=== PATIENT | female | born 1940 ===

== ENCOUNTER 2018-02-16 17:53 | Emergency (ER) | payer OTHER ==
[2018-02-16 17:53] VITALS: BMI 23.0
[2018-02-16 18:40] VITALS: BP 145/70; PULSE 70; RESP 18; TEMP 98; O2SAT 99
--- NOTE | 2018-02-16 19:49 | ED PDOC ---
HPI: Abdomen Time Seen by Provider: 02/16/18 19:03 Chief Complaint (Nursing): Abdominal Pain Chief Complaint (Provider): Abdominal Pain History Per: Patient History/Exam Limitations: no limitations Onset/Duration Of Symptoms: Days (x2), Persistent Current Symptoms Are (Timing): Still Present Location Of Pain/Discomfort: Epigastric, Other (radiating to back) Associated Symptoms: Nausea, Diarrhea (mild). denies: Fever, Chills, Vomiting, Urinary Symptoms Additional Complaint(s): Amy Patel is a 77 year old female with a past medical history of abdominal issues for one year, who is presenting to the ER with complaints of constant epigastric abdominal pain, radiating to the back and rest of abdomen, onset 2 days ago. Patient reports that the pain has been worsening since onset and she complains of nausea, loss of appetite, and mild diarrhea. She denies any vomiting, fever, chills, and urinary symptoms. Patient also notes that 2 weeks ago she had a colonoscopy with all normal results. She offers no other medical complaints at this time. PMD: none provided Past Medical History Reviewed: Historical Data, Nursing Documentation, Vital Signs Vital Signs: Last Vital Signs Temp 98 F 02/16/18 18:37 Pulse 70 02/16/18 18:37 Resp 18 02/16/18 18:37 BP 145/70 02/16/18 18:37 Pulse Ox 99 02/16/18 20:52 - Medical History PMH: Arthritis, CAD, Depression, HTN, Hypercholesterolemia, Hypothyroidism, Osteoporosis Denies: HIV, Chronic Kidney Disease - Surgical History Surgical History: Appendectomy, Cholecystectomy, Coronary Stent (?2012) - Family History Family History: States: Unknown Family Hx - Social History Current smoker - smoking cessation education provided: No Alcohol: None Drugs: Denies - Home Medications Home Medications: Ambulatory Orders Medication Instructions Recorded Aspirin [Ecotrin] 81 mg PO DAILY #0 tabec 09/09/16 Atenolol [Tenormin] 50 mg PO DAILY #0 tab 09/09/16 Cholecalciferol [Vitamin D 1000 IU] 2,000 iu PO DAILY #0 tab 09/09/16 Levothyroxine [Synthroid] 75 mcg PO DAILY #0 tab 09/09/16 Nitrofurantoin Macrocrystals 100 mg PO Q12 #0 cap 09/09/16 [Macrobid] Acetaminophen [Tylenol 325mg tab] 650 mg PO Q6 PRN #0 tab 09/12/16 Atenolol [Tenormin] 50 mg PO DAILY #0 tab 09/12/16 Atorvastatin [Lipitor] 40 mg PO DAILY #0 tab 09/12/16 Atorvastatin [Lipitor] 40 mg PO DAILY@2100 #0 tab 09/12/16 Cholecalciferol [Vitamin D 1000 IU] 2,000 iu PO DAILY #0 tab 09/12/16 Levothyroxine [Synthroid] 75 mcg PO DAILY@0630 #0 tab 09/12/16 Nitrofurantoin Macrocrystals 100 mg PO Q12 #0 cap 09/12/16 [Macrobid] hydroCHLOROthiazide [Microzide] 12.5 mg PO DAILY #0 cap 09/12/16 Dicyclomine [Bentyl] 20 mg PO BID PRN #30 tab 02/16/18 Pantoprazole [Protonix] 40 mg PO DAILY #30 ect 02/16/18 Saccharomyces Boulardi [Florastor] 500 mg PO BID #28 cap 02/16/18 - Allergies Allergies/Adverse Reactions: Allergies Allergy/AdvReac Type Severity Reaction Status Date / Time No Known Allergies Allergy Verified 09/05/16 20:30 Review of Systems ROS Statement: Except As Marked, All Systems Reviewed And Found Negative Constitutional: Positive for: Other (loss of appetite). Negative for: Fever, Chills Gastrointestinal: Positive for: Nausea, Abdominal Pain, Diarrhea (mild). Negative for: Vomiting Genitourinary Female: Negative for: Other (urinary symptoms) Physical Exam - Reviewed Nursing Documentation Reviewed: Yes Vital Signs Reviewed: Yes - Physical Exam Gastrointestinal/Abdominal: Positive for: Tenderness (epigastric tenderness to palpation, diffuse but distractible ) - Laboratory Results Result Diagrams: 02/16/18 20:07 02/16/18 20:53 - ECG O2 Sat by Pulse Oximetry: 99 (RA) Pulse Ox Interpretation: Normal Medical Decision Making Medical Decision Making: Time: 20:01 Impression: epigastric pain Differentials: gastritis pancreatitis, hepatitis Plan: --Venous Blood Gas Shock Panel --CT ABD/Pelvis --EKG --Amylase --CMP --Lipase --ED Urine Dipstick --CBC --COAG ABD PELVIS W/O PO OR IV CONT Exam Date: 02/16/18 This imaging exam was performed at [facility] ADDENDUM Addendum created by Luis Ken MD on 02/16/2018 9:02:14 PM EDT Kidneys and ureters: Small left renal angiomyolipoma. Few probable renal cysts. No renal calculi. No hydronephrosis. Initial report created on 02/16/2018 8:46:30 PM EDT EXAM: CT Abdomen and Pelvis Without Intravenous Contrast CLINICAL HISTORY: 77 years old, female; Pain; Abdominal pain; Periumbilical; Prior surgery; Surgery date: 6+ months; Surgery type: Cholecystectomy; Patient HX: Periumbilical pain w/nausea diarrhea x 3 days; Additional info: Abd pain TECHNIQUE: Axial computed tomography images of the abdomen and pelvis without intravenous contrast. All CT scans at this facility use one or more dose reduction techniques, viz.: automated exposure control; ma/kV adjustment per patient size (including targeted exams where dose is matched to indication; i.e. head); or iterative reconstruction technique. Coronal and sagittal reformatted images were created and reviewed. COMPARISON: No relevant prior studies available. FINDINGS: Limitations: Lack of intravenous contrast. Motion artifact - mild. Lower thorax: Minimal atelectasis/scarring. Ectasia of ascending thoracic aorta, up to 4.2 cm in diameter. ABDOMEN: Liver: Unremarkable. Gallbladder and bile ducts: Cholecystectomy. No significant ductal dilation. Pancreas: Unremarkable. No ductal dilation. Spleen: No splenomegaly. Adrenals: Mild hypertrophy of adrenal glands. Kidneys and ureters: Few probable renal cysts. No renal calculi. No hydronephrosis. Stomach and bowel: Scattered diverticula within colon. No associated inflammatory stranding. Segmental areas of mild mural thickening vs underdistention of large bowel. No associated inflammatory stranding. No obstruction. Appendix: Normal caliber. No inflammation. PELVIS: Bladder: Unremarkable. No stones. Reproductive: Lobulated uterus with coarse calcifications. ABDOMEN and PELVIS: Intraperitoneal space: No significant fluid collection. No free air. Bones/joints: Early degenerative changes of spine. No acute fracture. Soft tissues: Tiny umbilical hernia containing fat. Vasculature: Mild atherosclerotic disease. No aneurysm. Lymph nodes: No pathologically enlarged lymph nodes. IMPRESSION: 1. Diverticulosis without definite CT evidence of diverticulitis. 2. Mild colitis vs underdistention. Clinical correlation is needed. 3. Probable fibroid uterus. 4. Incidental/non-acute findings are described above. Addendum Dictated By: Luis Ken MD Addendum Dictated Date Time:02/16/18 Addendum Signed by:Luis Ken MD Addendum signed Date Time: 02/16/182101 Addendum Transcribed By: JOAN Addendum Transcribed Date Time: 02/16/18 ACYP02/VRD EXAM: CT Abdomen and Pelvis Without Intravenous Contrast CLINICAL HISTORY: 77 years old, female; Pain; Abdominal pain; Periumbilical; Prior surgery; Surgery date: 6+ months; Surgery type: Cholecystectomy; Patient HX: Periumbilical pain w/nausea diarrhea x 3 days; Additional info: Abd pain TECHNIQUE: Axial computed tomography images of the abdomen and pelvis without intravenous contrast. All CT scans at this facility use one or more dose reduction techniques, viz.: automated exposure control; ma/kV adjustment per patient size (including targeted exams where dose is matched to indication; i.e. head); or iterative reconstruction technique. Coronal and sagittal reformatted images were created and reviewed. COMPARISON: No relevant prior studies available. FINDINGS: Limitations: Lack of intravenous contrast. Motion artifact - mild. Lower thorax: Minimal atelectasis/scarring. Ectasia of ascending thoracic aorta, up to 4.2 cm in diameter. ABDOMEN: Liver: Unremarkable. Gallbladder and bile ducts: Cholecystectomy. No significant ductal dilation. Pancreas: Unremarkable. No ductal dilation. Spleen: No splenomegaly. Adrenals: Mild hypertrophy of adrenal glands. Kidneys and ureters: Few probable renal cysts. No renal calculi. No hydronephrosis. Stomach and bowel: Scattered diverticula within colon. No associated inflammatory stranding. Segmental areas of mild mural thickening vs underdistention of large bowel. No associated inflammatory stranding. No obstruction. Appendix: Normal caliber. No inflammation. PELVIS: Bladder: Unremarkable. No stones. Reproductive: Lobulated uterus with coarse calcifications. ABDOMEN and PELVIS: Intraperitoneal space: No significant fluid collection. No free air. Bones/joints: Early degenerative changes of spine. No acute fracture. Soft tissues: Tiny umbilical hernia containing fat. Vasculature: Mild atherosclerotic disease. No aneurysm. Lymph nodes: No pathologically enlarged lymph nodes. IMPRESSION: 1. Diverticulosis without definite CT evidence of diverticulitis. 2. Mild colitis vs underdistention. Clinical correlation is needed. 3. Probable fibroid uterus. 4. Incidental/non-acute findings are described above. Dictated By: Luis Ken MD Dictated Date/Time: 02/16/182045 Signed By: Luis Ken MD Date Signed: 2045 Transcribed By: JOAN Transcribe Date/Time : 02/16/182045 ACYP02/VRD Scribe Attestation: Documented by Mirela Fonseca acting as a scribe for Liz Sesay MD. Scribe Attestation: All medical record entries made by the Scribe were at my direction and personally dictated by me. I have reviewed the chart and agree that the record accurately reflects my personal performance of the history, physical exam, medical decision making, and the department course for this patient. I have also personally directed, reviewed, and agree with the discharge instructions and disposition. Disposition - Clinical Impression Clinical Impression: Abdominal pain - Disposition Referrals: Rafita Hardy MD [Medical Doctor] - ([facility] POR LA MANANA A HACER ALFREDA ODESSA EN 3-5 [facility] [place]) Disposition: Routine/Home Disposition Time: 22:00 Condition: STABLE Prescriptions: Dicyclomine [Bentyl] 20 mg PO BID PRN #30 tab PRN Reason: abdominal pain Pantoprazole [Protonix] 40 mg PO DAILY #30 ect Saccharomyces Boulardi [Florastor] 500 mg PO BID #28 cap Instructions: Acute Abdomen (Belly Pain) Print Language: EMIRATI
[2018-02-16 20:12] LABS: BASO % 0.6 % (0.0-2.0); EOS # 0.3 K/uL (0.0-0.7); EOS % 3.2 % (0.0-4.0); HEMOGLOBIN 13.2 g/dL (12.0-16.0); LYMPH # 2.5 K/uL (1.0-4.3); LYMPH % 30.5 % (20.0-40.0); MEAN CELL VOLUME 84.8 fl (81.0-99.0); MEAN CORPUSCULAR HEMOGLOBIN 28.5 pg (27.0-31.0); MEAN CORPUSCULAR HGB CONC 33.6 g/dL (33.0-37.0); MEAN PLATELET VOLUME 9.9 fl (7.2-11.7); MONO # 0.6 K/uL (0.0-0.8); MONO % 7.4 % (0.0-10.0); NEUT # 4.8 K/uL (1.8-7.0); NEUT % 58.3 % (50.0-75.0); NRBC % 0.1 % (0.0-0.0); RBC 4.63 Mil/uL (3.80-5.20); RED CELL DISTRIBUTION WIDTH 14.4 % (11.5-14.5); WHITE BLOOD COUNT 8.2 K/uL (4.8-10.8)
[2018-02-16 20:16] LABS: VENOUS BLOOD GAS BASE EXCESS 1.5 mmol/L (0.0-2.0); VENOUS BLOOD GAS PCO2 43 mmHg (40-60); VENOUS BLOOD GAS PO2 35 mm/Hg (30-55)
[2018-02-16 20:31] LABS: PARTIAL THROMBOPLASTIN TIME 32.4 Seconds (25.6-37.1); PROTHROMBIN TIME 11.1 Seconds (9.8-13.1)
--- NOTE | 2018-02-16 20:46 | CT ---
EXAM: CT Abdomen and Pelvis Without Intravenous Contrast CLINICAL HISTORY: 77 years old, female; Pain; Abdominal pain; Periumbilical; Prior surgery; Surgery date: 6+ months; Surgery type: Cholecystectomy; Patient HX: Periumbilical pain w/nausea & diarrhea x 3 days; Additional info: Abd pain TECHNIQUE: Axial computed tomography images of the abdomen and pelvis without intravenous contrast. All CT scans at this facility use one or more dose reduction techniques, viz.: automated exposure control; ma/kV adjustment per patient size (including targeted exams where dose is matched to indication; i.e. head); or iterative reconstruction technique. Coronal and sagittal reformatted images were created and reviewed. COMPARISON: No relevant prior studies available. FINDINGS: Limitations: Lack of intravenous contrast. Motion artifact - mild. Lower thorax: Minimal atelectasis/scarring. Ectasia of ascending thoracic aorta, up to 4.2 cm in diameter. ABDOMEN: Liver: Unremarkable. Gallbladder and bile ducts: Cholecystectomy. No significant ductal dilation. Pancreas: Unremarkable. No ductal dilation. Spleen: No splenomegaly. Adrenals: Mild hypertrophy of adrenal glands. Kidneys and ureters: Few probable renal cysts. No renal calculi. No hydronephrosis. Stomach and bowel: Scattered diverticula within colon. No associated inflammatory stranding. Segmental areas of mild mural thickening vs underdistention of large bowel. No associated inflammatory stranding. No obstruction. Appendix: Normal caliber. No inflammation. PELVIS: Bladder: Unremarkable. No stones. Reproductive: Lobulated uterus with coarse calcifications. ABDOMEN and PELVIS: Intraperitoneal space: No significant fluid collection. No free air. Bones/joints: Early degenerative changes of spine. No acute fracture. Soft tissues: Tiny umbilical hernia containing fat. Vasculature: Mild atherosclerotic disease. No aneurysm. Lymph nodes: No pathologically enlarged lymph nodes. IMPRESSION: 1. Diverticulosis without definite CT evidence of diverticulitis. 2. Mild colitis vs underdistention. Clinical correlation is needed. 3. Probable fibroid uterus. 4. Incidental/non-acute findings are described above.
[2018-02-16 21:06] LABS: ALT/SGPT 39 U/L (9-52); AMYLASE 146 U/L (30-110); AST/SGOT 31 U/L (14-36); BLOOD UREA NITROGEN 16 mg/dl (7-17); CALCIUM 9.7 mg/dL (8.4-10.2); GFR AFRICAN-AMERICAN > 60; GFR NON-AFRICAN AMERICAN > 60; LIPASE 125 U/L (23-300)
--- NOTE | 2018-02-17 19:38 | CARD ---
APPROVED REPORT EKG Measurement Heart [id number] <Conclusion> Normal sinus rhythm Normal ECG
== END 2018-02-16 23:15 | disposition home or self-care (01) ==
LOC: H.ER 17:53
DX: R10.13 Epigastric pain (principal)